=== PATIENT | female | born 1955 | race African-American/Black ===

== ENCOUNTER 2017-08-28 07:27 | Emergency (ER) | payer BC ==
[~2017-08-28] VITALS: Ht 165.1 cm; Wt 63.0 kg
[2017-08-28 14:44] VITALS: BP 158/90
== END 2017-08-28 15:00 | disposition home or self-care (01) ==
LOC: ER 07:43
DX: S02.2XXA Fracture of nasal bones, initial encounter for closed fracture (principal); M25.512 Pain in left shoulder; M25.572 Pain in left ankle and joints of left foot; M25.562 Pain in left knee; M54.2 Cervicalgia; V89.2XXA Person injured in unspecified motor-vehicle accident, traffic, initial encounter; Y93.89 Activity, other specified; Y92.410 Unspecified street and highway as the place of occurrence of the external cause; Y99.8 Other external cause status
CPT/HCPCS: 70486; 72125; 73000; 73010; 73030; 73080; 73110; 73562; 73610; 99284; A4565